=== PATIENT | male | born 1970 | race Caucasian/White ===

== ENCOUNTER 2022-07-10 15:15 | Observation (INO) ==
[2022-07-10 16:16] LABS: Basophils # (auto) 0.05 K/uL (0-0.2); Basophils % (auto) 1.1 %; Eosinophils # (auto) 0.07 K/uL (0-0.50); Eosinophils % (auto) 1.5 %; Hematocrit (blood only) 37.5 % (40.1-51.0); Hemoglobin 12.6 g/dl (14.0-18.0); Immature Granulocytes # (auto) 0.02 K/uL (0.00-0.02); Immature Granulocytes % (auto) 0.4 %; Lymphocytes # (auto) 0.77 K/uL (1.2-3.4); Mean Corpuscular Hemoglobin 31.1 pg (25.0-34.0); Mean Corpuscular Hgb Conc 33.6 g/dL (32.0-36.0); Mean Corpuscular Volume 92.6 fL (80.0-100.0); Mean Platelet Volume 9.6 fL (9.4-12.4); Monocytes # (auto) 0.66 K/uL (0.24-0.82); Monocytes % (auto) 14.6 %; Neutrophils # (auto) 2.95 K/uL (1.4-6.5); Neutrophils % (auto) 65.4 %; Platelet Count 195 K/uL (130-400); RDW Coefficient of Variation 12.2 % (11.5-14.5); RDW Standard Deviation 41.6 fL (36.4-46.3); Red Blood Count 4.05 M/uL (4.63-6.08); White Blood Count 4.52 K/ul (4.8-10.8)
[2022-07-10 16:53] LABS: Albumin Globulin Ratio 1.3 (0.9-2); Albumin Level 3.9 gm/dl (3.4-5.0); BUN Creatinine Ratio 16.5 (10-20); Bilirubin,Total 0.5 mg/dl (0.2-1.0); Calcium 9.4 mg/dl (8.5-10.1); Creatinine Clr Calc Pharmacy 81.3 ml/min; Est GFR (African American) 79.3 ml/min; Est GFR (Non-African American) 68.4 ml/min; Globulin 3.1 gm/dl (2.5-4.0); Potassium 4.1 mmol/L (3.5-5.1)
--- NOTE | 2022-07-10 16:58 | Emergency Department Note ---
Impression & Plan Incarcerated umbilical hernia, Abdominal pain ED Provider Note NAME: CRISTOFER ARREOLA AGE: 51 SEX: M : 1970 ARRIVES VIA: Walk-In INFORMANT: Patient ED PROVIDER(S): Erik Vera DO CHIEF COMPLAINT: abdominal pain HPI: Patient is a 51-year-old male who presents to the ER for periumbilical abdominal pain. Patient notes that this started about 10 days ago. [place]. He notes the pain has been getting gradually worse. Does come and go, he will occasionally have trouble having a bowel movement. He has had a hernia there for about 15 years and has been unable to reduce it since the pain started about 10 days ago. He notes it has been becoming red/discolored. No dysuria, urgency, or frequency. No other exacerbating or remitting factors. He has point tenderness. Last bowel movement was yesterday. PAST MEDICAL HISTORY:See Below PAST SURGICAL HISTORY:See Below FAMILY HISTORY:See Below SOCIAL HISTORY:See Below HOME MEDICATIONS:See Below ALLERGIES:See Below VITALS:See Below PHYSICAL EXAMINATION: GENERAL: Sitting up in bed, alert, well appearing, well nourished, no distress, non-toxic EYE EXAM: normal conjunctiva. LUNGS: Clear to auscultation. Normal chest wall mechanics HEART: no murmurs, S1 normal and S2 normal ABDOMEN: abdomen soft, periumbilical tenderness with at the umbilicus which is erythematous nonreducible, normo-active bowel sounds, no masses, no rebound or guarding. UPPER EXTREMITIES: upper extremities are grossly normal. LOWER EXTREMITIES: No pitting edema. NEURO EXAM: Normal sensorium, cranial nerves II-XII grossly intact, normal speech, no gross weakness of arms, no gross weakness of legs. MEDICAL DECISION MAKING: Patient is a 51-year-old male who presents the ER for abdominal pain. IV was established blood work is obtained. Labs show mild leukopenia at 4.5 thousand. No anemia. BMP along with LFTs bilirubin is unremarkable. Lipase slightly up at 87 although not significant. UA was clean. COVID-negative. Nonreducible strangulated periumbilical hernia on exam. CT abdomen pelvis confirms this although there is no bowel involvement. Discussed with Dr. Gibbons who evaluate the patient at bedside and agrees and admit the patient to his service and will take to the OR after discussion with the patient and myself. Patient will go to the OR tomorrow morning. Patient felt comfortable with this. external records were reviewed. Triage Nursing notes reviewed. Limited review of prior medical records performed Vital Signs: reviewed and remarkable for HTN Differential diagnosis: Differential diagnoses includes but is not limited to gastritis, peptic ulcer disease, GERD, gallbladder disease, pancreatitis, small bowel obstruction, acute coronary syndrome, pericarditis, ischemic bowel, irritable bowel disease, irritable bowel syndrome, appendicitis, diverticulitis, malignancy, hernia. ER treatment provided: See below Diagnostics interpreted by me include EKG and cardiac monitoring as listed below: -ECG: none -Laboratory studies:Interpreted by me as stated above in MDM and shown below. Imaging studies: Xrays: As interpreted by me:none CTs show: CT abdomen pelvis confirms strangulated fat-containing periumbilical hernia Consultation(s): Discussed with general surgery who evaluate the patient at bedside and will take to the OR tomorrow morning Procedures:none Critical Care: None Past Med/Surg History Social History Smoking Status: Current every day smoker Tobacco Type: Cigarettes and E-cigarettes / Vaping Preferred Language: Bermudian Feels Safe at Home: Yes Allergies Allergies Allergy/AdvReac Type Severity Reaction Status Date / Time bee venom protein (honey bee) Allergy Severe Anaphylaxis Verified 07/10/22 20:03 Tetracyclines Allergy UNKNOWN Unverified 07/10/22 20:02 varenicline [From Chantix] AdvReac Severe psychological Verified 07/10/22 20:03 problems Home Meds Home Medications Medication Instructions Recorded Confirmed atorvastatin 20 mg tablet 20 mg PO QAM 07/10/22 07/10/22 celecoxib 200 mg capsule 200 mg PO DAILY PRN Pain 07/10/22 07/10/22 epinephrine 0.3 mg/0.3 mL 0.3 mg IM UD PRN Allergic Reaction 07/10/22 07/10/22 injection, auto-injector (EpiPen) fluoxetine 10 mg capsule 30 mg PO QAM 07/10/22 07/10/22 gabapentin 300 mg capsule 600 mg PO HS 07/10/22 07/10/22 Results & Data (ED) Vital Signs Vital Signs - 24 hr 07/10/22 15:16 07/10/22 17:59 Temperature 36.5 C Temperature Source Temporal Artery Scan Pulse Rate 81 Pulse Rate [Right Finger] 65 Respiratory Rate 18 16 Respiratory Effort / Characteristics Non-Labored Spontaneous Respiratory Depth Normal Respiratory Pattern Regular Blood Pressure 159/96 H Blood Pressure [Right Arm] 131/97 Blood Pressure Mean 117 Blood Pressure Mean [Right Arm] 108 Blood Pressure Position Sitting Blood Pressure Position [Right Arm] Sitting Pulse Oximetry 98 97 Oxygen Delivery Method Room Air Room Air Sepsis Recent Fever Within 48 Hours No Sepsis New/Unexplained Change in Mental Status N/A Sepsis Action Taken by Nursing No Action Required Laboratory Data 07/10/22 16:09 07/10/22 16:09 Lab Results 07/10/22 07/10/22 07/10/22 Range/Units 16:09 16:09 16:09 WBC 4.52 L (4.8-10.8) K/ul RBC 4.05 L (4.63-6.08) M/uL Hgb 12.6 L (14.0-18.0) g/dl Hct 37.5 L (40.1-51.0) % MCV 92.6 (80.0-100.0) fL MCH 31.1 (25.0-34.0) pg MCHC 33.6 (32.0-36.0) g/dL RDW Std Deviation 41.6 (36.4-46.3) fL RDW Coeff of Damaso 12.2 (11.5-14.5) % Plt Count 195 (130-400) K/uL MPV 9.6 (9.4-12.4) fL Immature Gran % (Auto) 0.4 % Neut % (Auto) 65.4 % Lymph % (Auto) 17.0 % [place] % (Auto) 14.6 % Eos % (Auto) 1.5 % Baso % (Auto) 1.1 % Neut # (Auto) 2.95 (1.4-6.5) K/uL Lymph # (Auto) 0.77 L (1.2-3.4) K/uL [place] # (Auto) 0.66 (0.24-0.82) K/uL Eos # (Auto) 0.07 (0-0.50) K/uL Baso # (Auto) 0.05 (0-0.2) K/uL Immature Gran # (Auto) 0.02 (0.00-0.02) K/uL Sodium 138 (136-145) mmol/L Potassium 4.1 (3.5-5.1) mmol/L Chloride 102 (98-107) mmol/L Carbon Dioxide 28 (21-32) mmol/L Anion Gap 8 (3-11) BUN 20 (6-23) mg/dl Creatinine 1.21 (0.6-1.4) mg/dl Est Cr Clr Drug Dosing 81.3 ml/min Est GFR ( Amer) 79.3 ml/min Est GFR (Non-Af Amer) 68.4 ml/min BUN/Creatinine Ratio 16.5 (10-20) Glucose 92 (70-99(Fasting)) mg/dl Calcium 9.4 (8.5-10.1) mg/dl Total Bilirubin 0.5 (0.2-1.0) mg/dl AST 60 H (13-39) U/L ALT 52 (7-52) U/L Alkaline Phosphatase 84 (34-104) U/L Total Protein 7.0 (6.0-8.3) gm/dl Albumin 3.9 (3.4-5.0) gm/dl Globulin 3.1 (2.5-4.0) gm/dl Albumin/Globulin Ratio 1.3 (0.9-2) Lipase 87 H (11-82) U/L Urine Color Urine Appearance (Clear) Urine pH (4.5-7.5) Ur Specific [place] (1.000-1.030) Urine Protein (Negative) Urine Glucose (UA) (Negative) Urine Ketones (Negative) Urine Blood (Negative) Urine Nitrite (Negative) Urine Bilirubin (Negative) Urine Urobilinogen (Negative) Ur Leukocyte Esterase (Negative) SARS-CoV-2, RNA, NAAT (NEGATIVE) 07/10/22 07/10/22 Range/Units 18:03 18:51 WBC (4.8-10.8) K/ul RBC (4.63-6.08) M/uL Hgb (14.0-18.0) g/dl Hct (40.1-51.0) % MCV (80.0-100.0) fL MCH (25.0-34.0) pg MCHC (32.0-36.0) g/dL RDW Std Deviation (36.4-46.3) fL RDW Coeff of Damaso (11.5-14.5) % Plt Count (130-400) K/uL MPV (9.4-12.4) fL Immature Gran % (Auto) % Neut % (Auto) % Lymph % (Auto) % [place] % (Auto) % Eos % (Auto) % Baso % (Auto) % Neut # (Auto) (1.4-6.5) K/uL Lymph # (Auto) (1.2-3.4) K/uL [place] # (Auto) (0.24-0.82) K/uL Eos # (Auto) (0-0.50) K/uL Baso # (Auto) (0-0.2) K/uL Immature Gran # (Auto) (0.00-0.02) K/uL Sodium (136-145) mmol/L Potassium (3.5-5.1) mmol/L Chloride (98-107) mmol/L Carbon Dioxide (21-32) mmol/L Anion Gap (3-11) BUN (6-23) mg/dl Creatinine (0.6-1.4) mg/dl Est Cr Clr Drug Dosing ml/min Est GFR ( Amer) ml/min Est GFR (Non-Af Amer) ml/min BUN/Creatinine Ratio (10-20) Glucose (70-99(Fasting)) mg/dl Calcium (8.5-10.1) mg/dl Total Bilirubin (0.2-1.0) mg/dl AST (13-39) U/L ALT (7-52) U/L Alkaline Phosphatase (34-104) U/L Total Protein (6.0-8.3) gm/dl Albumin (3.4-5.0) gm/dl Globulin (2.5-4.0) gm/dl Albumin/Globulin Ratio (0.9-2) Lipase (11-82) U/L Urine Color Yellow Urine Appearance Clear (Clear) Urine pH 6.5 (4.5-7.5) Ur Specific [place] 1.031 H (1.000-1.030) Urine Protein Negative (Negative) Urine Glucose (UA) Negative (Negative) Urine Ketones Negative (Negative) Urine Blood Negative (Negative) Urine Nitrite Negative (Negative) Urine Bilirubin Negative (Negative) Urine Urobilinogen Negative (Negative) Ur Leukocyte Esterase Negative (Negative) SARS-CoV-2, RNA, NAAT NEGATIVE (NEGATIVE) Administered Medications Diphenhydramine HCl (Diphenhydramine Capsule 25 Mg Cap) 25 mg PO Q4H PRN PRN Reason: hives, itching or insomnia Stop: 08/09/22 21:36 Last Admin: 07/10/22 22:08 Dose: 25 mg Documented By: CHASITY Enoxaparin Sodium (Enoxaparin Inj 40 Mg/0.4 Ml Syr) 40 mg SQ Q24H TAINA Stop: 08/09/22 21:59 Last Admin: 07/10/22 22:08 Dose: 40 mg Documented By: CHASITY Fluoxetine HCl (Fluoxetine Hcl 10 Mg Cap) 30 mg PO DAILY [facility] Stop: 08/10/22 08:59 Last Admin: 07/10/22 22:07 Dose: 30 mg Documented By: CHASITY Sodium Chloride (Nss 1000ml) 1,000 mls @ 75 mls/hr IV .[id number] TAINA Stop: 08/09/22 21:36 Last Admin: 07/10/22 22:12 Dose: 75 mls/hr Documented By: CHASITY Ketorolac Tromethamine (Ketorolac 30 Mg/Ml Vial) 30 mg IV Q6H PRN PRN Reason: Pain & Pre PT Stop: 07/15/22 21:36 Last Admin: 07/10/22 22:08 Dose: 30 mg Documented By: CHASITY Discontinued Medications Ioversol (Optiray 350 100ml) 87 ml IV ONCE ONE Stop: 07/10/22 17:22 Last Admin: 07/10/22 17:25 Dose: 87 ml Documented By: JANA Imaging Data Radiologist's Impression: Abdomen/Pelvis CT 07/10/22 16:58 CT OF THE ABDOMEN AND PELVIS WITH CONTRAST CLINICAL HISTORY: Periumbilical abdominal hernia appears incarcerated. COMPARISON STUDY: CT of the abdomen and pelvis October 14, 2008. TECHNIQUE: Following IV administration of 87 mL of Optiray, axial images of the abdomen and pelvis were obtained from the lung bases to the proximal femurs. Images were reviewed in the axial, sagittal, and coronal planes. IV contrast was administered without complication. Automated exposure control was utilized for the study. A dose lowering technique was utilized adhering to the principles of ALARA. CT DOSE: 826.16 mGycm FINDINGS: Lung bases are unremarkable. No pneumatosis, free air or portal venous gas is present. 2.4 cm segment 6 hepatic lesion with incomplete nodular peripheral enhancement is noted. This was shown on prior CT and represents a hemangioma. There is no biliary or pancreatic ductal dilatation patient. The spleen, adrenal glands, pancreas are unremarkable. A few subcentimeter bilateral renal lesions are too small to characterize. There is no hydronephrosis. There is no evidence for a bowel obstruction. Extensive colonic diverticulosis is noted without evidence for acute diverticulitis. Fat-containing umbilical hernia is noted. The hernia neck measures 2 cm in width. There is infiltration of the herniated fat with a small amount of loculated fluid. There is also infiltration within the adjacent portion of the omentum. No bowel loops within the hernia sac are present. Major vasculature is patent. There are no acute fractures. IMPRESSION: 1. Umbilical hernia with infiltration of the herniated fat and a small amount of loculated fluid. Infiltration of the adjacent omentum. The findings suggest strangulation of the herniated fat. No bowel loops within the hernia sac. 2. Extensive colonic diverticulosis. No evidence for acute diverticulitis. 3. No bowel obstruction. Normal appendix. ACT 112: Negative or not required by law. Electronically signed by: Blaise Beauchamp M.D. 07/10/2022 5:40 PM Discharge Plan Visit Data Chief Complaint: Referred by Doctor Stated Complaint: REF BY DOC, HERNIA ED Provider: Erik Vera Discharge Problem: Incarcerated umbilical hernia, Abdominal pain Patient Disposition: Admitted As Inpatient Discharge Instructions Interventions: ED Discharge Assessment Last Done: 07/10/22 21:41
[2022-07-10] MEDS ORDERED: OPTIRAY 350 100ml IV ONE (17:21)
--- NOTE | 2022-07-10 17:41 | CT Scan Report ---
CT OF THE ABDOMEN AND PELVIS WITH CONTRAST CLINICAL HISTORY: Periumbilical abdominal hernia appears incarcerated. COMPARISON STUDY: CT of the abdomen and pelvis October 14, 2008. TECHNIQUE: Following IV administration of 87 mL of Optiray, axial images of the abdomen and pelvis we re obtained from the lung bases to the proximal femurs. Images were reviewed in the axial, sagittal, and coronal planes. IV contrast was administered without complication. Automated exposure control wa s utilized for the study. A dose lowering technique was utilized adhering to the principles of ALARA . CT DOSE: 826.16 mGycm FINDINGS: Lung bases are unremarkable. No pneumatosis, free air or portal venous gas is present. 2.4 cm segment 6 hepatic lesion with incomplete nodular peripheral enhancement is noted. This was shown o n prior CT and represents a hemangioma. There is no biliary or pancreatic ductal dilatation patient. The spleen, adrenal glands, pancreas are unremarkable. A few subcentimeter bilateral renal lesions ar e too small to characterize. There is no hydronephrosis. There is no evidence for a bowel obstruction . Extensive colonic diverticulosis is noted without evidence for acute diverticulitis. Fat-containing umbilical hernia is noted. The hernia neck measures 2 cm in width. There is infiltration of the adriana iated fat with a small amount of loculated fluid. There is also infiltration within the adjacent port ion of the omentum. No bowel loops within the hernia sac are present. Major vasculature is patent. Th ere are no acute fractures. IMPRESSION: 1. Umbilical hernia with infiltration of the herniated fat and a small amount of loculated fluid. Inf iltration of the adjacent omentum. The findings suggest strangulation of the herniated fat. No bowel loops within the hernia sac. 2. Extensive colonic diverticulosis. No evidence for acute diverticulitis. 3. No bowel obstruction. Normal appendix. ACT 112: Negative or not required by law. Electronically signed by: Blaise Beauchamp M.D. 07/10/2022 5:40 PM
[2022-07-10 18:34] LABS: Appearance Urine Clear (Clear); Bilirubin Urine Negative (Negative); Blood Urine Negative (Negative); Color Urine Yellow; Glucose Urine UA Negative (Negative); Ketones Urine Negative (Negative); Leukocyte Esterase Urine Negative (Negative); Nitrite Urine Negative (Negative); Protein Urine Negative (Negative); Specific Gravity Urine 1.031 (1.000-1.030); Urobilinogen Urine Negative (Negative); pH Urine 6.5 (4.5-7.5)
--- NOTE | 2022-07-10 19:53 | History & Physical Report ---
Date of Service July 10, 2022 Assessment & Plan (1) Incarcerated umbilical hernia: Plan: 51-year-old gentleman presents with incarcerated umbilical hernia. The hernia contains fat, no bowel. There is pain present. I discussed with him the need for repair of the hernia. We discussed the risks and benefits of the surgery as well as the postoperative course and recovery. All questions were answered, and he is agreeable to proceed. We will admit him to the hospital overnight and take him to the operating room in the morning for open umbilical hernia repair. History of Present Illness Chief Complaint: Incarcerated umbilical hernia Primary Care Provider: Primo Rosario DO 51-year-old gentleman presents with incarcerated umbilical hernia. He has had a hernia for approximately 15 years. It has been slowly increasing in size. It was reducible up until a few days ago. It has been increasing in pain since that time. He denies fevers or chills. He denies chest pain or shortness of breath. He denies nausea, vomiting, trouble with bowel movements. CT scan demonstrates incarcerated fat within the hernia. There is no bowel within the hernia. Allergies Allergy/AdvReac Type Severity Reaction Status Date / Time Tetracyclines Allergy UNKNOWN Unverified 08/04/09 04:40 Home Medications Medication Instructions Recorded Confirmed Type atorvastatin 20 mg tablet 20 mg PO DAILY 07/10/22 07/10/22 History celecoxib 200 mg capsule 200 mg PO DAILY PRN Pain 07/10/22 07/10/22 History fluoxetine 10 mg capsule 10 mg PO UD 07/10/22 07/10/22 History gabapentin 300 mg capsule 300 mg PO TID 07/10/22 07/10/22 History Past Med/Surg History Social History Smoking Status: Current every day smoker Tobacco Type: Cigarettes and E-cigarettes / Vaping Preferred Language: Hungarian Feels Safe at Home: Yes Review of Systems Review of Systems: All systems reviewed & are unremarkable except as noted in HPI & below Physical Exam Constitutional: WD/WN, vitals as above Eyes: PERRL, conjunctivae normal, anicteric sclerae Neck: trachea midline, no thyromegaly Respiratory: normal respiratory effort; no respiratory distress and no labored breathing Cardiovascular: Rate/Rhythm: regular rate and regular rhythm Gastrointestinal (Abdomen): Inspection/Auscultation: abdomen normal to inspection; abdomen not distended Percussion/Palpation: + abdomen tender (At umbilicus), abdomen soft and + hernia (Umbilical hernia containing incarcerated fat); no guarding and abdomen not rigid Skin: no rashes, warm and dry Psychiatric: A+Ox3, euthymic affect Results & Data Results & Data ([facility]) Vital Signs (Past 12 Hours) Vital Signs Temp Pulse Pulse Resp BP BP Pulse Ox 07/10/22 17:59 65 16 131/97 97 07/10/22 15:16 36.5 C 81 18 159/96 H 98 O2 Del Method 07/10/22 17:59 Room Air 07/10/22 15:16 Room Air Laboratory Results 07/10/22 07/10/22 07/10/22 Range/Units 18:51 18:03 16:09 WBC (4.8-10.8) K/ul RBC (4.63-6.08) M/uL Hgb (14.0-18.0) g/dl Hct (40.1-51.0) % MCV (80.0-100.0) fL MCH (25.0-34.0) pg MCHC (32.0-36.0) g/dL RDW Std Deviation (36.4-46.3) fL RDW Coeff of Damaso (11.5-14.5) % Plt Count (130-400) K/uL MPV (9.4-12.4) fL Immature Gran % (Auto) % Neut % (Auto) % Lymph % (Auto) % [place] % (Auto) % Eos % (Auto) % Baso % (Auto) % Neut # (Auto) (1.4-6.5) K/uL Lymph # (Auto) (1.2-3.4) K/uL [place] # (Auto) (0.24-0.82) K/uL Eos # (Auto) (0-0.50) K/uL Baso # (Auto) (0-0.2) K/uL Immature Gran # (Auto) (0.00-0.02) K/uL Sodium (136-145) mmol/L Potassium (3.5-5.1) mmol/L Chloride (98-107) mmol/L Carbon Dioxide (21-32) mmol/L Anion Gap (3-11) BUN (6-23) mg/dl Creatinine (0.6-1.4) mg/dl Est Cr Clr Drug Dosing ml/min Est GFR ( Amer) ml/min Est GFR (Non-Af Amer) ml/min BUN/Creatinine Ratio (10-20) Glucose (70-99(Fasting)) mg/dl Calcium (8.5-10.1) mg/dl Total Bilirubin (0.2-1.0) mg/dl AST (13-39) U/L ALT (7-52) U/L Alkaline Phosphatase (34-104) U/L Total Protein (6.0-8.3) gm/dl Albumin (3.4-5.0) gm/dl Globulin (2.5-4.0) gm/dl Albumin/Globulin Ratio (0.9-2) Lipase 87 H (11-82) U/L Urine Color Yellow Urine Appearance Clear (Clear) Urine pH 6.5 (4.5-7.5) Ur Specific [place] 1.031 H (1.000-1.030) Urine Protein Negative (Negative) Urine Glucose (UA) Negative (Negative) Urine Ketones Negative (Negative) Urine Blood Negative (Negative) Urine Nitrite Negative (Negative) Urine Bilirubin Negative (Negative) Urine Urobilinogen Negative (Negative) Ur Leukocyte Esterase Negative (Negative) SARS-CoV-2, RNA, NAAT NEGATIVE (NEGATIVE) 07/10/22 07/10/22 Range/Units 16:09 16:09 WBC 4.52 L (4.8-10.8) K/ul RBC 4.05 L (4.63-6.08) M/uL Hgb 12.6 L (14.0-18.0) g/dl Hct 37.5 L (40.1-51.0) % MCV 92.6 (80.0-100.0) fL MCH 31.1 (25.0-34.0) pg MCHC 33.6 (32.0-36.0) g/dL RDW Std Deviation 41.6 (36.4-46.3) fL RDW Coeff of Damaso 12.2 (11.5-14.5) % Plt Count 195 (130-400) K/uL MPV 9.6 (9.4-12.4) fL Immature Gran % (Auto) 0.4 % Neut % (Auto) 65.4 % Lymph % (Auto) 17.0 % [place] % (Auto) 14.6 % Eos % (Auto) 1.5 % Baso % (Auto) 1.1 % Neut # (Auto) 2.95 (1.4-6.5) K/uL Lymph # (Auto) 0.77 L (1.2-3.4) K/uL [place] # (Auto) 0.66 (0.24-0.82) K/uL Eos # (Auto) 0.07 (0-0.50) K/uL Baso # (Auto) 0.05 (0-0.2) K/uL Immature Gran # (Auto) 0.02 (0.00-0.02) K/uL Sodium 138 (136-145) mmol/L Potassium 4.1 (3.5-5.1) mmol/L Chloride 102 (98-107) mmol/L Carbon Dioxide 28 (21-32) mmol/L Anion Gap 8 (3-11) BUN 20 (6-23) mg/dl Creatinine 1.21 (0.6-1.4) mg/dl Est Cr Clr Drug Dosing 81.3 ml/min Est GFR ( Amer) 79.3 ml/min Est GFR (Non-Af Amer) 68.4 ml/min BUN/Creatinine Ratio 16.5 (10-20) Glucose 92 (70-99(Fasting)) mg/dl Calcium 9.4 (8.5-10.1) mg/dl Total Bilirubin 0.5 (0.2-1.0) mg/dl AST 60 H (13-39) U/L ALT 52 (7-52) U/L Alkaline Phosphatase 84 (34-104) U/L Total Protein 7.0 (6.0-8.3) gm/dl Albumin 3.9 (3.4-5.0) gm/dl Globulin 3.1 (2.5-4.0) gm/dl Albumin/Globulin Ratio 1.3 (0.9-2) Lipase (11-82) U/L Urine Color Urine Appearance (Clear) Urine pH (4.5-7.5) Ur Specific [place] (1.000-1.030) Urine Protein (Negative) Urine Glucose (UA) (Negative) Urine Ketones (Negative) Urine Blood (Negative) Urine Nitrite (Negative) Urine Bilirubin (Negative) Urine Urobilinogen (Negative) Ur Leukocyte Esterase (Negative) SARS-CoV-2, RNA, NAAT (NEGATIVE) Diagnostic Findings CT OF THE ABDOMEN AND PELVIS WITH CONTRAST CLINICAL HISTORY: Periumbilical abdominal hernia appears incarcerated. COMPARISON STUDY: CT of the abdomen and pelvis October 14, 2008. TECHNIQUE: Following IV administration of 87 mL of Optiray, axial images of the abdomen and pelvis were obtained from the lung bases to the proximal femurs. Images were reviewed in the axial, sagittal, and coronal planes. IV contrast was administered without complication. Automated exposure control was utilized for the study. A dose lowering technique was utilized adhering to the principles of ALARA. CT DOSE: 826.16 mGycm FINDINGS: Lung bases are unremarkable. No pneumatosis, free air or portal venous gas is present. 2.4 cm segment 6 hepatic lesion with incomplete nodular peripheral enhancement is noted. This was shown on prior CT and represents a hemangioma. There is no biliary or pancreatic ductal dilatation patient. The spleen, adrenal glands, pancreas are unremarkable. A few subcentimeter bilateral renal lesions are too small to characterize. There is no hydronephrosis. There is no evidence for a bowel obstruction. Extensive colonic diverticulosis is noted without evidence for acute diverticulitis. Fat-containing umbilical hernia is noted. The hernia neck measures 2 cm in width. There is infiltration of the herniated fat with a small amount of loculated fluid. There is also infiltration within the adjacent portion of the omentum. No bowel loops within the hernia sac are present. Major vasculature is patent. There are no acute fractures. IMPRESSION: 1. Umbilical hernia with infiltration of the herniated fat and a small amount of loculated fluid. Infiltration of the adjacent omentum. The findings suggest strangulation of the herniated fat. No bowel loops within the hernia sac. 2. Extensive colonic diverticulosis. No evidence for acute diverticulitis. 3. No bowel obstruction. Normal appendix. Code Status & VTE Plan VTE Prophylaxis Plan VTE Prophylaxis will be ordered: Yes
[2022-07-10] MEDS ORDERED: GABAPENTIN 300 MG CAP PO SCH ×2 (21:37→22:30)
[2022-07-10] MEDS ORDERED: PROMETHAZINE HCL 12.5 MG in SODIUM CHLORIDE 0.9% 50 ML IV PRN (21:37)
[2022-07-10] MEDS ORDERED: MoRPHine SULFATE 2 MG/ML CARP IV PRN (21:37)
[2022-07-10] MEDS ORDERED: diphenhydrAMINE Capsule 25 MG CAP PO PRN (21:37)
[2022-07-10] MEDS ORDERED: ONDANSETRON INJ 2 MG/ML 2 ML VIAL IV PRN (21:37)
[2022-07-10] MEDS ORDERED: KETOROLAC 30 MG/ML VIAL IV PRN (21:37)
[2022-07-10] MEDS ORDERED: ENOXAPARIN INJ 40 MG/0.4 ML SYR SQ SCH (22:00)
[2022-07-10] MEDS: SODIUM CHLORIDE 0.9% 1000ML 1,000 ML IV SCH (22:12)
[2022-07-10] MEDS ORDERED: Nursing to Pharmacy Communication SCH (22:30)
[2022-07-11] MEDS ORDERED: GABAPENTIN 300 MG CAP PO SCH (09:00)
[2022-07-11] MEDS ORDERED: FLUoxetine HCL 10 MG CAP PO SCH (09:00)
--- NOTE | 2022-07-11 09:10 | Anesthesiology Consultation ---
Date of Service July 11, 2022 Assessment & Plan (1) Encounter for pre-operative examination: Chart Review Chart Review: Acceptable Risk for Surgery and Patient NOT seen in Pre Admission Testing Consults Requested none History Surgery Operation Date: 07/11/22 09:50 Proposed Procedures p Umbilical Hernia Repair - Darvin Gibbons MD Height/Weight Height: 5 ft 10 in Weight: 91.8 kg Allergies Allergy/AdvReac Type Severity Reaction Status Date / Time bee venom protein (honey bee) Allergy Severe Anaphylaxis Verified 07/10/22 20:03 Tetracyclines Allergy UNKNOWN Unverified 07/10/22 20:02 [email or web address] [From Chantix] AdvReac Severe psychological Verified 07/10/22 20:03 problems Medications Home Medications Medication Instructions Recorded Confirmed Last Taken atorvastatin 20 mg tablet 20 mg PO QAM 07/10/22 07/10/22 07/10/22 celecoxib 200 mg capsule 200 mg PO DAILY PRN Pain 07/10/22 07/10/22 Unknown epinephrine 0.3 mg/0.3 mL 0.3 mg IM UD PRN Allergic Reaction 07/10/22 07/10/22 Unknown injection, auto-injector (EpiPen) fluoxetine 10 mg capsule 30 mg PO QAM 07/10/22 07/10/22 07/10/22 gabapentin 300 mg capsule 300 mg PO QAM 07/10/22 07/10/22 Unknown gabapentin 300 mg capsule 600 mg PO HS 07/10/22 07/10/22 07/09/22 Active Medications Generic Name Dose Route Start Last Admin Trade Name Freq PRN Reason Stop Dose Admin Diphenhydramine HCl 25 mg 07/10/22 21:37 07/10/22 22:08 Diphenhydramine Capsule 25 Mg Cap PO 08/09/22 21:36 25 mg Q4H PRN Administration hives, itching or insomnia Enoxaparin Sodium 40 mg 07/10/22 22:00 07/10/22 22:08 Enoxaparin Inj 40 Mg/0.4 Ml Syr SQ 08/09/22 21:59 40 mg Q24H TAINA Administration Fluoxetine HCl 30 mg 07/11/22 09:00 07/10/22 22:07 Fluoxetine Hcl 10 Mg Cap PO 08/10/22 08:59 30 mg DAILY TAINA Administration Gabapentin 300 mg 07/11/22 09:00 07/11/22 08:09 Gabapentin 300 Mg Cap PO 08/10/22 08:59 300 mg QAM TAINA Administration Gabapentin 600 mg 07/10/22 22:30 07/10/22 22:42 Gabapentin 300 Mg Cap PO 08/09/22 22:29 600 mg HS TAINA Administration Sodium Chloride 1,000 mls @ 75 mls/hr 07/10/22 21:37 07/10/22 22:12 Nss 1000ml IV 08/09/22 21:36 75 mls/hr .[id number] TAINA Administration Ketorolac Tromethamine 30 mg 07/10/22 21:37 07/10/22 22:08 Ketorolac 30 Mg/Ml Vial IV 07/15/22 21:36 30 mg Q6H PRN Administration Pain & Pre PT Social History Smoking Status: Current every day smoker tobacco type: e-cigarettes Do You Dip or Chew Tobacco: No Hx Alcohol Use: Yes Alcohol type: beer and wine alcohol intake frequency: holidays/special occasions only Hx Substance Use: No substance use type: does not use Physical Exam Vital Signs Last Vital Signs Temp 97.7 F 07/11/22 07:50 Pulse 69 07/11/22 07:50 Resp 16 07/11/22 07:50 BP 111/76 07/11/22 07:50 Pulse Ox 96 07/11/22 07:50 O2 Del Method 07/11/22 07:50 Testing Laboratory Results 07/10/22 16:09 07/10/22 16:09 Urine Color Yellow 07/10/22 18:03 Urine Appearance Clear (Clear) 07/10/22 18:03 Urine pH 6.5 (4.5-7.5) 07/10/22 18:03 Ur Specific [place] 1.031 (1.000-1.030) H 07/10/22 18:03 Urine Protein Negative (Negative) 07/10/22 18:03 Urine Glucose (UA) Negative (Negative) 07/10/22 18:03 Urine Ketones Negative (Negative) 07/10/22 18:03 Urine Nitrite Negative (Negative) 07/10/22 18:03 Ur Leukocyte Esterase Negative (Negative) 07/10/22 18:03
[2022-07-11] MEDS ORDERED: fentaNYL citrate 100 MCG/2 ML VIAL ONE (10:20)
[2022-07-11] MEDS ORDERED: MIDAZOLAM HCL 1 MG/ML 2ML VIAL ONE (10:20)
[2022-07-11] MEDS: SODIUM CHLORIDE 0.9% 1000ML 1,000 ML IV SCH (10:20)
--- NOTE | 2022-07-11 11:01 | History & Physical Bridge Note ---
Date of Service July 11, 2022 History & Physical Bridge Note I have examined the patient, reviewed the History & Physical and in the interval since the performance of the History & Physical I have noted the following changes of clinical significance: no changes noted
[2022-07-11] MEDS ORDERED: BUPIVACAINE/EPINEPHRINE 0.25% 1:200,000 30 ML VIAL ONE (11:23)
[2022-07-11] MEDS ORDERED: ceFAZolin 330 MG/ML 1 GM VIAL ONE ×2 (11:23→11:50)
[2022-07-11] MEDS ORDERED: PROPOFOL IV EMULSION 10 MG/ML 20 ML VIAL IV ONE (11:49)
[2022-07-11] MEDS ORDERED: NEOSTIGMINE METHYLSULFATE 1 MG/ML 10ML VIAL ONE (11:49)
[2022-07-11] MEDS ORDERED: ONDANSETRON INJ 2 MG/ML 2 ML VIAL ONE (11:49)
[2022-07-11] MEDS ORDERED: DEXAMETHASONE SOD INJ 4 MG/ML VIAL ONE (11:49)
[2022-07-11] MEDS ORDERED: GLYCOPYRROLATE 0.2 MG/ML VIAL ONE (11:49)
[2022-07-11] MEDS ORDERED: ROCURONIUM BROMIDE 10 MG/ML 5 ML VIAL IV ONE ×3 (11:50→11:51)
[2022-07-11] MEDS ORDERED: ePHEDrine sulfate 50 MG/ML SYR ONE (11:52)
--- NOTE | 2022-07-11 12:14 | Post Operative Brief Note ---
Immediate Post Op Note v1 Date of Surgery July 11, 2022 Pre & Post Diagnosis Operation Date: 07/11/22 09:50 Pre-Op Diagnosis: Incarcerated Umbilical Hernia Post-Op Diagnosis: Incarcerated Umbilical Hernia I identified the patient and participated in the time-out.: Yes Procedure Operation Date: 07/11/22 09:50 Actual Procedures p Umbilical Hernia Repair with Mesh(Not Applicable) - Darvin Gibbons MD Surgeon Darvin Gibbons MD Confectionery Drops Machine Operator FREDIS Santiago assisted with tissue retraction, camera op, closure Estimated Blood Loss 5 Findings Consistent with Post-Op Diagnosis
--- NOTE | 2022-07-11 12:17 | Operative Report ---
Post Operative Report Pre & Post Diagnosis Operation Date: 07/11/22 09:50 Pre-Op Diagnosis: Incarcerated Umbilical Hernia Post-Op Diagnosis: Incarcerated Umbilical Hernia I identified the patient and participated in the time-out.: Yes Procedure Operation Date: 07/11/22 09:50 Actual Procedures p Umbilical Hernia Repair with Mesh(Not Applicable) - Darvin Gibbons MD Surgeon Darvin Gibbons MD Silk Spotter FREDIS Santiago assisted with tissue retraction, camera op, closure Estimated Blood Loss 5 Findings Consistent with Post-Op Diagnosis Incarcerated umbilical hernia containing ischemic omental fat Specimens Hernia sac and contents Drains None Anesthesia Type General Complications No immediate complications Description of Procedure The patient was taken to the operating room, placed supine on the operating table. A timeout was performed, SCD boots were placed, perioperative antibiotics were administered. After adequate anesthesia and analgesia was obtained, the area was prepped and draped in the normal sterile fashion. An infraumbilical incision was made and was carried down to the level of subcutaneous tissue. The hernia defect was identified and the sac was dissected free circumferentially. There was a significant amount of inflammation around the incarcerated hernia sac. The sac was opened and was excised at the level of the fascia. It was sent off the field for pathology. There is a significant amount of ischemic omental fat within the hernia. This was excised and sent off the field. The remainder was reduced into the abdominal cavity. The edges of the fascia were identified and cleaned. Attenuated fascia was excised. Hemostasis was excellent. The defect measured 1.5 cm diameter. Because of the ischemic fat as well as the size of the hernia, the decision was made to close the defect primarily. The fascial edges were reapproximated with interrupted 0 Prolene sutures. The wound was copiously irrigated, and suctioned free. Hemostasis was excellent. The umbilical stalk was reattached with 3-0 Vicryl suture. The subcutaneous tissue was closed with 3-0 Vicryl. The skin was closed with a running 4-0 Monocryl subcuticular stitch. Dermabond was applied. The patient tolerated the procedure without complication, and was transferred in stable condition to the PACU. All instrument, needle, and sponge counts were correct at the end of the case. My intellectual property legal assistant was necessary throughout the procedure for tissue retraction, possible camera operation, and closure of the wounds. I understand that section 1842(b)(7)(D) of the Social Security act generally prohibits Medicare physician fee schedule payment for the services of assistants at surgery in teaching hospitals when qualified residents are available to furnish such services. I certify that the services for which payment is claimed were medically necessary and that no qualified resident was available to perform the services. I further understand that these services are subject to postpayment review by the Medicare carrier. I attest to the content of the Intraoperative Record and any orders documented therein. Any exceptions are noted below.
[2022-07-11] MEDS ORDERED: fentaNYL citrate 100 MCG/2 ML VIAL IV PRN (12:27)
[2022-07-11] MEDS ORDERED: ONDANSETRON INJ 2 MG/ML 2 ML VIAL IV PRN (12:27)
[2022-07-11] MEDS ORDERED: ePHEDrine sulfate 50 MG/ML AMP IV PRN (12:27)
[2022-07-11] MEDS ORDERED: ATROPINE SULFATE 0.1 MG/ML 10ML SYR IV PRN (12:27)
--- NOTE | 2022-07-11 12:49 | Anesthesiology Progress Note ---
Date of Service July 11, 2022 Anesthesia Post Procedure Vital Signs Vital Signs: Temp Pulse Pulse Pulse Resp BP BP 07/11/22 12:40 66 20 116/75 07/11/22 12:30 68 14 106/63 07/11/22 12:25 97.2 F L 77 12 119/70 07/11/22 10:34 97.9 F 66 20 127/80 07/11/22 07:50 97.7 F 69 16 111/76 07/11/22 01:55 07/10/22 22:00 07/10/22 22:00 97.9 F 70 20 116/78 07/10/22 21:37 97.9 F 70 20 116/78 07/10/22 21:41 07/10/22 17:59 65 16 131/97 07/10/22 15:16 97.7 F 81 18 159/96 H Pulse Ox O2 Del Method O2 Flow Rate 07/11/22 12:40 95 Room Air 07/11/22 12:30 98 Oxymask 6 07/11/22 12:25 94 Oxymask 6 07/11/22 10:34 92 Room Air 07/11/22 07:50 96 Room Air 07/11/22 01:55 Room Air 07/10/22 22:00 Room Air 07/10/22 22:00 98 Room Air 07/10/22 21:37 98 Room Air 07/10/22 21:41 Room Air 07/10/22 17:59 97 Room Air 07/10/22 15:16 98 Room Air Pain Intensity Right Great Toe: Pain Intensity: 0 Transfer of Care Handoff Completed per policy Notes Mental Status: alert / awake / arousable and participated in evaluation Patient Amnestic to Procedure: Yes Nausea / Vomiting: adequately controlled Pain: adequately controlled Airway Patency, RR, SpO2: stable & adequate BP & HR: stable & adequate Hydration State: stable & adequate Anesthetic Complications: no major complications apparent and Pt Satisfied with anesthetic care
[2022-07-11] MEDS ORDERED: CeleBREX 200 MG CAP PO PRN (13:30)
[2022-07-11] MEDS ORDERED: ACETAMINOPHEN 325 MG TAB PO PRN (13:30)
[2022-07-11] MEDS ORDERED: oxyCODONE/ACETAMINOPHEN 5mg/325mg TAB PO PRN (13:30)
[2022-07-11] MEDS ORDERED: EPINEPHrine INJ 1 MG/ML AMP IM PRN (13:34)
[2022-07-12] MEDS ORDERED: ATORVASTATIN 20 MG TAB PO SCH (09:00)
[2022-07-12] MEDS ORDERED: GABAPENTIN 300 MG CAP PO SCH (09:00)
--- NOTE | 2022-07-15 09:33 | Discharge Summary ---
Date of Service July 15, 2022 Admission HPI Per Admitting Provider 51-year-old gentleman presents with incarcerated umbilical hernia. He has had a hernia for approximately 15 years. It has been slowly increasing in size. It was reducible up until a few days ago. It has been increasing in pain since that time. He denies fevers or chills. He denies chest pain or shortness of breath. He denies nausea, vomiting, trouble with bowel movements. CT scan demonstrates incarcerated fat within the hernia. There is no bowel within the hernia. Principal Diagnosis Incarcerated umbilical hernia Discharge Data Allergies Allergy/AdvReac Type Severity Reaction Status Date / Time bee venom protein (honey bee) Allergy Severe Anaphylaxis Verified 07/10/22 20:03 Tetracyclines Allergy UNKNOWN Unverified 07/10/22 20:02 [email or web address] [From Chantix] AdvReac Severe psychological Verified 07/10/22 20:03 problems Consultations 07/10/22 17:46 Consult General Surgery Stat Procedures Performed Operation Date: 07/11/22 09:50 Actual Procedures p Incarcerated Umbilical Hernia Repair (Not Applicable) - Darvin Gibbons MD Ordered Studies 07/10/22 16:58 CT Abd and Pelvis [CT abd pelvis IV con only] Stat Hospital Course (1) Incarcerated umbilical hernia: Patient was admitted to the hospital from emergency room under observation and scheduled for open umbilical hernia repair with possible mesh by Dr. Gibbons on 07/11/2022. Patient had a small hernia with incarcerated omentum with some inflammation however no abscess. Mesh was not used in the procedure. Patient tolerated procedure well. HE was transferred to recovery then to medical/surgical floor for postoperative care. His diet was advanced to regular diet and po pain medications as needed for pain. Patient was evaluate a few hours postoperatively and feeling well, minimal pain just soreness and not requiring any pain medication. Tolerating regular diet. Patient was discharged home in evening of operative day in stable condition. Total Time Total Time Spent Total Time Spent (In Minutes): 30 minutes Total Time Includes: Examination of the Patient, Discharge Planning and Medication Reconciliation Discharge Plan Discharge Items Patient Disposition: Home - Self-Care Reason For Visit: INCARCERATED UMBILICAL HERNIA Discharge Diagnosis: Incarcerated umbilical hernia Activity: Per Instructions section Non-emergency contact: Primary Care Provider and Surgeon Call non-emergency contact if: you have any medication questions, your pain is not controlled, your pain is worsening, your pain is concerning for you, you have a fever, your temperature is above 101, your wound has increased redness, your wound has increased drainage and your wound pain has increased Follow-up/Referrals: Darvin Gibbons MD [Physician] - Primo Rosario DO [Primary Care Provider] - Diet: Regular Addtl Attending Provider Instructions: ACTIVITY RECOMMENDATIONS: * Walk as much as possible. * No heavy lifting (>10 lbs.) for 6 weeks. No strenuous activity until cleared by surgeon. SPECIAL CARE INSTRUCTIONS: * May apply ice to hernia repair site on and off until bedtime tonight. * May shower in 24 hours. Try to keep dressing dry and sponge bath around the dressings. Remove dressing and cotton balls (x2) in 3 days. * Leave steri strips on for one week and then remove. They may fall off on their own that is okay. * Call the surgeon's office with any questions or concerns - (ex. temperature higher than 101 degrees F, excessive bleeding or pain). MEDICATIONS: Resume previous medications unless instructed otherwise by your surgeon. * May take extra strength Tylenol and Ibuprofen as needed for mild to moderate pain * 650 mg Tylenol every 6 hours as needed * Ibuprofen 600 mg every 6 hours as needed (take with food). Do not take continuous NSAIDs (Ibuprofen, Motrin, Aleve for more than 3 consecutive days) * Percocet 1 every 6 hours, as needed for moderate to severe pain * Recommend daily stool softener (Colace) to prevent constipation and straining. Drink plenty of water daily and increase fiber in diet. If you still have constipation while taking stool softener and have not had a bowel movement for 2-3 days you may take Miralax daily until bowel movement. FOLLOW UP VISIT: If not already scheduled, please call the office to schedule a two week follow- up appointment. Office number Pending Studies at Discharge: Yes (pathology, will be reviewed at postop visit) [facility]Al[facility], Smoking Cessation Medications and DC Order Prescriptions: New oxycodone-acetaminophen 5-325 mg tablet 1 tab PO Q6H PRN (Reason: pain) Qty: 10 0RF Continued celecoxib 200 mg capsule 200 mg PO DAILY PRN (Reason: Pain) atorvastatin 20 mg tablet 20 mg PO QAM gabapentin 300 mg capsule 600 mg PO HS fluoxetine 10 mg capsule 30 mg PO QAM epinephrine [EpiPen] 0.3 mg/0.3 mL Auto-Injector 0.3 mg IM UD PRN (Reason: Allergic Reaction) gabapentin 300 mg Capsule 300 mg PO QAM Discharge Orders: Discharge Order (Routine); Ordered 07/11/22 Ordered By: Ade Santiago Admission Data Admit Date/Time: 07/10/22 19:51 Attending Provider: Darvin Gibbons Admit Provider: Darvin Gibbons Primary Care Provider: Primo Rosario Other Providers: Darvin iGbbons Other Interventions: Discharge Summary Assessment (RN) Last Done: 07/11/22 16:25
== END 2022-07-11 17:01 | disposition home or self-care (01) ==
LOC: ED 15:15 → 3W 15:15